=== PATIENT | female | born 1945 | race Caucasian/White ===

== ENCOUNTER 2017-12-07 12:52 | Emergency (ER) | payer OTHER ==
[~2017-12-07] VITALS: Ht 160 cm; Wt 69.5 kg
[2017-12-07 17:02] VITALS: BP 154/93
== END 2017-12-07 17:06 | disposition home or self-care (01) ==
LOC: EME 12:52
DX: S43.409A Unspecified sprain of unspecified shoulder joint, initial encounter (principal); S06.0X0A Concussion without loss of consciousness, initial encounter; W07.XXXA Fall from chair, initial encounter
CPT/HCPCS: 70450; 73030; 73090; 73110; 99281; 99284